=== PATIENT | male | born 1975 | race Caucasian/White ===

== ENCOUNTER 2019-06-27 02:42 | Inpatient (IN) | payer OTHER ==
[~2019-06-27] VITALS: Ht 172.7 cm; Wt 77.5 kg
[~2019-06-27 02:42] MED LIST: CYCL10TA7 PO; IBUP-1542 PO
[2019-06-27] MEDS ORDERED: ACETAMINOPHEN 325 MG TAB PO PRN (05:00)
[2019-06-27] MEDS ORDERED: ONDANSETRON 4 MG INJ IV PRN (05:00)
[2019-06-27] MEDS ORDERED: NACL 0.9% 3 ML SYG IV SCH (05:00)
[2019-06-27] MEDS ORDERED: ALBUTEROL/IPRATROPIUM (NEB) 3 ML AMP HHN PRN (05:00)
[2019-06-27 05:15] VITALS: BP 119/74; PULSE 59; RESP 16
[2019-06-27 05:43] VITALS: Ht 172.7 cm; Wt 77.5 kg
[2019-06-27 07:50] VITALS: BP 130/78; PULSE 63; RESP 16
[2019-06-27] MEDS: HYDROCODONE/APAP (5/325) TAB PO PRN ×2 (13:26→20:05)
[2019-06-27] MEDS ORDERED: ENOXAPARIN 100 MG/ML SYG SC SCH (14:00)
[2019-06-27 14:35] VITALS: BP 115/69; PULSE 61; RESP 18
[2019-06-27] MEDS: NICOTINE (14 MG/24 HR) PATCH TRANSDERM SCH (17:32)
[2019-06-27 20:00] VITALS: BP 122/74; PULSE 70; RESP 18
[2019-06-27] MEDS: APIXABAN 5 MG TABLET PO SCH (20:05)
[2019-06-27] MEDS ORDERED: CYCLOBENZAPRINE 10 MG TAB PO ONE (22:00)
[2019-06-28 02:27] VITALS: BP 114/64; PULSE 65; RESP 18
[2019-06-28 07:55] VITALS: BP 117/70; PULSE 61; RESP 18
[2019-06-28] MEDS: APIXABAN 5 MG TABLET PO SCH ×2 (10:07→20:35)
[2019-06-28] MEDS: NICOTINE (14 MG/24 HR) PATCH TRANSDERM SCH ×2 (10:08→16:00)
[2019-06-28 15:10] VITALS: BP 117/75; PULSE 63; RESP 18
[2019-06-28 19:15] VITALS: BP 122/74; PULSE 71; RESP 18
[2019-06-28] MEDS: HYDROCODONE/APAP (5/325) TAB PO PRN (19:20)
[2019-06-28] MEDS: ZOLPIDEM 5 MG TAB PO PRN (20:35)
[2019-06-29 02:00] VITALS: BP 115/67; PULSE 67; RESP 18
[2019-06-29 07:33] VITALS: BP 127/66; PULSE 58; RESP 16
[2019-06-29] MEDS: APIXABAN 5 MG TABLET PO SCH ×2 (09:20→21:56)
[2019-06-29] MEDS: NICOTINE (14 MG/24 HR) PATCH TRANSDERM SCH (12:32)
[2019-06-29] MEDS: HYDROCODONE/APAP (5/325) TAB PO PRN ×2 (13:12→18:49)
[2019-06-29 14:38] VITALS: BP 117/66; PULSE 70; RESP 17
[2019-06-29 19:55] VITALS: BP 125/75; PULSE 71; RESP 18
[2019-06-29] MEDS: ZOLPIDEM 5 MG TAB PO PRN (21:56)
[2019-06-30 02:45] VITALS: BP 102/59; PULSE 64; RESP 20
[2019-06-30 07:21] VITALS: BP 109/66; PULSE 59; RESP 19
[2019-06-30] MEDS: HYDROCODONE/APAP (5/325) TAB PO PRN ×2 (07:49→14:41)
[2019-06-30] MEDS: APIXABAN 5 MG TABLET PO SCH ×2 (08:39→20:19)
[2019-06-30] MEDS: NICOTINE (14 MG/24 HR) PATCH TRANSDERM SCH (08:40)
[2019-06-30 12:59] VITALS: BP 119/70; PULSE 65; RESP 20
[2019-06-30 19:30] VITALS: BP 120/72; PULSE 86; RESP 18
[2019-06-30] MEDS: ZOLPIDEM 5 MG TAB PO PRN (20:25)
[2019-07-01 02:00] VITALS: BP 105/58; PULSE 63; RESP 18
[2019-07-01 07:52] VITALS: BP 106/63; PULSE 62; RESP 18
[2019-07-01] MEDS: NICOTINE (14 MG/24 HR) PATCH TRANSDERM SCH (08:24)
[2019-07-01] MEDS: HYDROCODONE/APAP (5/325) TAB PO PRN ×2 (08:25→21:35)
[2019-07-01] MEDS: APIXABAN 5 MG TABLET PO SCH ×2 (08:25→21:56)
[2019-07-01] MEDS: MULTIVITAMINS THERAPEUTIC TAB PO SCH (13:07)
[2019-07-01 14:00] VITALS: BP 117/70; PULSE 72; RESP 16
[2019-07-01 19:35] VITALS: BP 131/66; PULSE 72; RESP 19
[2019-07-01] MEDS: ZOLPIDEM 5 MG TAB PO PRN (21:38)
[2019-07-02 01:49] VITALS: BP 104/56; PULSE 65; RESP 18
[2019-07-02 08:02] VITALS: BP 103/59; PULSE 93; RESP 18
[2019-07-02] MEDS: NICOTINE (14 MG/24 HR) PATCH TRANSDERM SCH (09:00)
[2019-07-02] MEDS: MULTIVITAMINS THERAPEUTIC TAB PO SCH (09:17)
[2019-07-02] MEDS: APIXABAN 5 MG TABLET PO SCH ×2 (09:17→20:26)
[2019-07-02] MEDS: HYDROCODONE/APAP (5/325) TAB PO PRN ×2 (11:50→20:27)
[2019-07-02 20:00] VITALS: BP 118/70; PULSE 71; RESP 18
[2019-07-02] MEDS: ZOLPIDEM 5 MG TAB PO PRN (20:27)
[2019-07-03 02:00] VITALS: BP 112/59; PULSE 85; RESP 18
[2019-07-03 07:51] VITALS: BP 111/58; PULSE 63; RESP 18
[2019-07-03] MEDS: APIXABAN 5 MG TABLET PO SCH ×2 (08:28→20:17)
[2019-07-03] MEDS: MULTIVITAMINS THERAPEUTIC TAB PO SCH (08:28)
[2019-07-03] MEDS: NICOTINE (14 MG/24 HR) PATCH TRANSDERM SCH (08:28)
[2019-07-03] MEDS ORDERED: THIAMINE 100 MG TAB PO SCH (09:00)
[2019-07-03] MEDS: HYDROCODONE/APAP (5/325) TAB PO PRN (13:30)
[2019-07-03 16:40] VITALS: BP 143/71; PULSE 111; RESP 18
[2019-07-03 19:51] VITALS: BP 140/87; PULSE 112; RESP 18
[2019-07-03] MEDS ORDERED: METOPROLOL 25 MG TAB PO SCH (21:00)
[2019-07-04] MEDS ORDERED: APIXABAN 5 MG TABLET PO SCH (09:00)
[2019-07-04] MEDS ORDERED: THIAMINE 100 MG TAB PO SCH (09:00)
== END 2019-07-03 20:30 | disposition home or self-care (01) | DRG 301 ==
LOC: E/R 02:42 → MS1 03:02 → MS3 06-30 12:37
PROVIDERS: ADMIT Internal Medicine; ATTEND Internal Medicine
DX: I82.432 Acute embolism and thrombosis of left popliteal vein (principal); I10 Essential (primary) hypertension; S92.002D Unspecified fracture of left calcaneus, subsequent encounter for fracture with routine healing; S92.001D Unspecified fracture of right calcaneus, subsequent encounter for fracture with routine healing; F10.10 Alcohol abuse, uncomplicated; F17.200 Nicotine dependence, unspecified, uncomplicated; B35.3 Tinea pedis; F15.10 Other stimulant abuse, uncomplicated; M54.2 Cervicalgia; Z59.0 Homelessness; F25.1 Schizoaffective disorder, depressive type; Z85.850 Personal history of malignant neoplasm of thyroid; W01.0XXD Fall on same level from slipping, tripping and stumbling without subsequent striking against object, subsequent encounter
CPT/HCPCS: 71045; 72040; 72100; 72125; 80053; 83735; 84100; 85025; 93005; 93922; 97162; 97166; J1650